=== PATIENT | female | born 2000 | race Hispanic/Latino ===

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

== ENCOUNTER 2022-03-17 21:11 | Emergency (ER) | payer OTHER ==
[~2022-03-17] VITALS: Ht 154.9 cm; Wt 100.7 kg
[2022-03-17 21:40] LABS: BASOPHILS % (AUTO) 0.6 % (0.0-5.0); EOSINOPHILS % (AUTO) 1.5 % (0.0-8.0); HEMATOCRIT 37.5 % (36-48); LYMPHOCYTES % (AUTO) 28.4 % (21.0-51.0); MEAN CORPUSCULAR HEMOGLOBIN 24.4 pg (27.0-33.0); MEAN CORPUSCULAR HGB CONC 32.5 g/dL (32.0-36.0); MEAN CORPUSCULAR VOLUME 74.9 fL (80-100); MONOCYTES % (AUTO) 6.7 % (3.0-13.0); NEUTROPHILS % (AUTO) 62.4 % (40.0-77.0); PLATELET COUNT (AUTO) 289 K/uL (130-400); RED BLOOD CELL COUNT(AUTO) 5.01 MIL/uL (4.00-5.50); RED CELL DISTRIBUTION WIDTH 14.6 % (11.0-15.5); WHITE BLOOD COUNT (AUTO) 10.8 K/uL (4.8-10.8)
[2022-03-17 21:53] LABS: CREATININE 0.7 mg/dL (0.5-1.5); POTASSIUM 3.5 mmol/L (3.5-5.1)
[2022-03-17 21:59] LABS: TOTAL PROTEIN, SERUM 8.6 g/dL (6.0-8.3)
[2022-03-17 21:59] LABS: APPEARANCE,URINE CLEAR (CLEAR); BILIRUBIN,URINE NEGATIVE (NEGATIVE); COLOR,URINE YELLOW (YELLOW); GLUCOSE, URINE (UA) NEGATIVE (NEGATIVE); KETONES,URINE NEGATIVE (NEGATIVE); LEUKOCYTE ESTERASE ,URINE NEGATIVE (NEGATIVE); NITRATE,URINE NEGATIVE (NEGATIVE); OCCULT BLOOD,URINE NEGATIVE (NEGATIVE); PROTEIN,URINE NEGATIVE (NEGATIVE)
[2022-03-17 22:03] LABS: HCG,QUALITATIVE URINE NEGATIVE (NEGATIVE)
[2022-03-17 22:09] LABS: AMPHET/METH SCREEN,URINE NEGATIVE (NEGATIVE); BARBITURATE SCREEN, URINE NEGATIVE (NEGATIVE); BENZODIAZEPINES SCREEN,URINE NEGATIVE (NEGATIVE); CANNABINOID SCREEN,URINE NEGATIVE (NEGATIVE); COCAINE SCREEN,URINE NEGATIVE (NEGATIVE); OPIATE SCREEN,URINE NEGATIVE (NEGATIVE); PHENCYCLIDINE SCREEN,URINE NEGATIVE (NEGATIVE)
[2022-03-17 22:31] VITALS: BP 134/72
[2022-03-17] MEDS ORDERED: TIZA4CAP8 PO (22:44)
== END 2022-03-17 22:51 | disposition home or self-care (01) ==
LOC: EDH 21:11
DX: R07.89 Other chest pain (principal); Z20.822 Contact with and (suspected) exposure to COVID-19
CPT/HCPCS: 99285; 71045; 87635; 84484; 80053; 80305; 85025; 87804 ×2; 81025; 36415; 93005; 81003; C9803

== ENCOUNTER 2023-06-23 16:27 | Emergency (ER) | payer OTHER ==
[~2023-06-23] VITALS: Ht 157.5 cm; Wt 101.2 kg
[~2023-06-23 16:27] MED LIST: TIZA4CAP8 PO
[2023-06-23 16:57] LABS: SARS-CoV-2, RNA, NAAT POSITIVE SARS CoV-2 (NEGATIVE)
[2023-06-23 17:02] LABS: RAPID GROUP A STREP negative (NEGATIVE)
[2023-06-23 17:06] LABS: INFLUENZA TYPE A Negative For Type A (NEGATIVE); INFLUENZA TYPE B Negative For Type B (NEGATIVE)
[2023-06-23] MEDS ORDERED: NIRM1TAB5 PO (19:04)
[2023-06-23 19:17] VITALS: BP 134/72; PULSE 98; RESP 16; O2SAT 98
== END 2023-06-23 19:19 | disposition home or self-care (01) ==
LOC: EDH 16:27
DX: U07.1 COVID-19 (principal)
CPT/HCPCS: 99283; 87635; 87880; 87804 ×2; C9803

== ENCOUNTER 2025-01-03 11:00 | Emergency (ER) | payer BC ==
[~2025-01-03] VITALS: Ht 154.9 cm; Wt 102.1 kg
[~2025-01-03 11:00] MED LIST changes: +NIRM1TAB5 PO
[2025-01-03 11:25] LABS: RAPID GROUP A STREP negative (NEGATIVE)
[2025-01-03 11:35] LABS: INFLUENZA TYPE A Negative For Type A (NEGATIVE); INFLUENZA TYPE B Negative For Type B (NEGATIVE)
[2025-01-03 11:36] LABS: COVID19 (SARS ANTIGEN RAPID) PRESUMPTIVE NEGATIVE (NEGATIVE)
[2025-01-03] MEDS: ondanSETRON ODT 4MG TAB SL ONE (12:18)
[2025-01-03 12:41] LABS: BASOPHILS # (AUTO) 0.04 K/uL (0.00-0.20); BASOPHILS % (AUTO) 0.5 % (0.0-5.0); EOSINOPHILS # (AUTO) 0.17 K/uL (0.00-0.70); EOSINOPHILS % (AUTO) 2.1 % (0.0-8.0); HEMATOCRIT 36.3 % (36-48); IMMATURE GRANULOCYTE ABSOLUTE 0.03 K/uL (0-1); LYMPHOCYTES # (AUTO) 2.9 K/uL (1.0-4.8); LYMPHOCYTES % (AUTO) 36.4 % (21.0-51.0); MEAN CORPUSCULAR HEMOGLOBIN 24.3 pg (27.0-33.0); MEAN CORPUSCULAR HGB CONC 31.7 g/dL (32.0-36.0); MEAN CORPUSCULAR VOLUME 76.7 fL (79-99); MONOCYTES # (AUTO) 0.5 K/uL (0.1-1.0); MONOCYTES % (AUTO) 6.6 % (3.0-13.0); NEUTROPHILS # (AUTO) 4.4 K/uL (1.8-7.7); PLATELET COUNT (AUTO) 274 K/uL (130-400); RED BLOOD CELL COUNT(AUTO) 4.73 MIL/uL (4.00-5.50); RED CELL DISTRIBUTION WIDTH 14.5 % (11.0-15.5); WHITE BLOOD COUNT (AUTO) 8.1 K/uL (4.8-10.8)
[2025-01-03 12:54] LABS: ALBUMIN 3.9 g/dL (3.5-5.0); BILIRUBIN,DIRECT 0.1 mg/dL (0.0-0.3); BILIRUBIN,TOTAL 0.2 mg/dL (0.2-1.0); CREATININE 0.6 mg/dL (0.5-1.0); POTASSIUM 4.3 mmol/L (3.5-5.1); TOTAL PROTEIN, SERUM 8.2 g/dL (6.0-8.3)
[2025-01-03] MEDS ORDERED: NAPR-1196 PO (13:10)
--- NOTE | 2025-01-03 13:10 | ERN ---
ED Note History of Present Illness Stated Complaint: RUNNY NOSE, SORE THROAT, HEADACHE Chief Complaint: Flu Symptoms Time Seen by MD: 11:03 Dictation: 24-year-old female presents to the ED for evaluation of flu-like symptoms onset two days ago. Patient is complaining of rhinorrhea, sore throat, nausea and intermittent abdominal pain, but denies any vomiting or diarrhea at this time. As per patient she has been experiencing abdominal pain on and off for the past week but denies any abdominal pain at this time. Allergies: Coded Allergies: No Known Drug Allergies (Unverified Allergy, Unknown, 08/29/19) Home Meds Active Scripts Naproxen (Naproxen) 250 Mg Tablet, 250 MG PO BID for 5 Days, #10 TAB Prov:ZINA GOMEZ MD 01/03/25 Nirmatrelvir/Ritonavir (Paxlovid 150-100 mg Pack (Eua)) 150 Mg-100 Mg Tablet, 1 EACH PO BID for 5 Days, #30 TAB Take 300mg of Nirmatrelvir and 100mg or Ritonavir in the morning and also at night for 5 days. Prov:BRIAN TALBERT TENONER OPERATOR 06/23/23 Tizanidine HCl (Tizanidine HCl) 4 Mg Capsule, 4 MG PO TIDP PRN for MUSCLE SPASMS, #12 CAP 0 Refills Prov:OG FISHMAN MD 03/17/22 Past Medical History Past Medical History: No Pertinent History Surgical History: None Social History: Lives with family, Other : 0 Aborts: 0 Review of System Dictation Constitutional: Negative for fever,chills, and weight loss Eyes: Negative for injury, pain,redness, and discharge ENT: Positive for rhinorrhea, sore throat Negative for injury,pain or swelling Cardiovascular: Negative for chest pain, palpitations, and edema Respiratory: Negative for shortness of breath, cough, and wheezing, Abdomen/GI: Positive for abdominal pain, nausea negative for vomiting, diarrhea, and constipation Back: Negative for injury and pain : Negative for injury, bleeding and discharge MS/Extremity: Negative for injury and deformity Skin: Negative for rash, and discoloration Neuro: Negative for headache, weakness, numbness, tingling, and seizure Psych: Negative for suicide ideation, homicidal ideation, and hallucinations Initial Vital Sign VS Vital Signs Date Time Temp Pulse Resp B/P (MAP) Pulse Ox O2 Delivery O2 Flow Rate FiO2 01/03/25 11:04 97.9 80 14 127/84 100 Room Air 0 01/03/25 13:17 21 Physical Exam Dictation General: awake, alert, NAD Head/Face: Normocephalic, atraumatic Eyes: PERRL, EOMI, vision at baseline ENT: oral cavity clear, TMs clear, no signs of infection Neck: Trachea midline, supple, no nuchal rigidity Cardiovascular: RRR, normal S1/S2, No MRGs, no JVD Respiratory: CTAB, no respiratory distress, No rales or wheezes Abdomen: Soft, non-tender, non-distended, normal bowel sounds, no guarding or rebound. Skin: Warm, dry, normal turgor, no rash MS/Extremity: Pulses equal, no cyanosis, neurovascular intact, FROM Neuro: COAx4, GCS 15, strength 5/5, CN 2-12 intact, normal cerebellar exam, normal gait, Psych: Normal behavior, mood, and affect normal Results (Laboratory/Radiology) Laboratory/Radiology Laboratory Tests Test 01/03/25 11:08 01/03/25 12:36 Influenza Type A Antigen Negative For Type A Influenza Type B Antigen Negative For Type B SARS-CoV-2 Antigen (Rapid) PRESUMPTIVE NEGATIVE Group A Streptococcus Rapid negative (NEGATIVE) White Blood Count 8.1 K/uL (4.8-10.8) Red Blood Count 4.73 MIL/uL (4.00-5.50) Hemoglobin 11.5 g/dL (12.0-16.0) L Hematocrit 36.3 % (36-48) Mean Corpuscular Volume 76.7 fL (79-99) L Mean Corpuscular Hemoglobin 24.3 pg (27.0-33.0) L Mean Corpuscular Hemoglobin Concent 31.7 g/dL (32.0-36.0) L Red Cell Distribution Width 14.5 % (11.0-15.5) Platelet Count 274 K/uL (130-400) Mean Platelet Volume 8.7 fL (7.5-10.5) Immature Granulocyte % (Auto) 0.4 % (0-1) Neutrophils (%) (Auto) 54.0 % (40.0-77.0) Lymphocytes (%) (Auto) 36.4 % (21.0-51.0) Monocytes (%) (Auto) 6.6 % (3.0-13.0) Eosinophils (%) (Auto) 2.1 % (0.0-8.0) Basophils (%) (Auto) 0.5 % (0.0-5.0) Neutrophils # (Auto) 4.4 K/uL (1.8-7.7) Lymphocytes # (Auto) 2.9 K/uL (1.0-4.8) Monocytes # (Auto) 0.5 K/uL (0.1-1.0) Eosinophils # (Auto) 0.17 K/uL (0.00-0.70) Basophils # (Auto) 0.04 K/uL (0.00-0.20) Absolute Immature Granulocyte (auto 0.03 K/uL (0-1) Nucleated Red Blood Cells 0.0 % (0.0-0.19) Red Blood Cell Morphology See comments Sodium Level 138 mmol/L (136-145) Potassium Level 4.3 mmol/L (3.5-5.1) Chloride Level 102 mmol/L (101-111) Carbon Dioxide Level 28 mmol/L (21-32) Blood Urea Nitrogen 15 mg/dL (7-18) Creatinine 0.6 mg/dL (0.5-1.0) Glomerular Filtration Rate Calc 128 mL/min (>90) Random Glucose 92 mg/dL (70-105) Total Calcium 8.8 mg/dL (8.5-10.1) Total Bilirubin 0.2 mg/dL (0.2-1.0) Direct Bilirubin 0.1 mg/dL (0.0-0.3) Aspartate Amino Transf (AST/SGOT) 19 U/L (10-37) Alanine Aminotransferase (ALT/SGPT) 51 U/L (12-78) Alkaline Phosphatase 75 U/L (50-136) Total Protein 8.2 g/dL (6.0-8.3) Albumin 3.9 g/dL (3.5-5.0) Serum Test, Qualitative NEGATIVE (NEGATIVE) Labs Reviewed?: Yes ED Course ED Course Orders Procedure Category Date Status Time Influenza Type A & B, LAB 01/03/25 Complete Rapid 11:03 Covid19 (Sars Antigen LAB 01/03/25 Complete Rapid) 11:03 Rapid (Group A Strep) LAB 01/03/25 Complete 11:03 Basic Metabolic Panel LAB 01/03/25 Complete 11:58 Cbc With Differential LAB 01/03/25 Complete 11:58 Hepatic Function Panel LAB 01/03/25 Complete 11:58 Testing, LAB 01/03/25 Complete Serum Hcg 11:58 Ondansetron Odt 4mg PHA 01/03/25 Complete Tab (Zofran 4mg Odt) 12:00 Current Medications Medications (Trade) Dose Ordered Sig/Jacy Route PRN Reason Start Time Stop Time Status Last Admin Dose Admin Ondansetron HCl (zoFRAN 4MG ODT) 4 mg ONCE ONCE SL 01/03/25 12:00 01/03/25 12:02 DC 01/03/25 12:18 Vital Signs Date Time Temp Pulse Resp B/P (MAP) Pulse Ox O2 Delivery O2 Flow Rate FiO2 01/03/25 13:17 97.5 68 19 121/73 96 Room Air* 0 21 01/03/25 11:04 97.9 80 14 127/84 100 Room Air 0 Medical Decision Making MDM MDM: Differential diagnosis: Viral syndrome, influenza, URI Risk of complication and/or morbidity or mortality of patient management: None Medications-Per medication reconciliation Need for hospitalization: Patient does not meet criteria for hospitalization. Need for emergency major/minor surgery: No There are no social concerns with this patient. Prescription drug management Prescriptions will include symptomatic care I independently interpreted the test that were performed, results were reviewed by me and considered findings on radiology if ordered. Medical management and examination interpretation discussions were had by me with other qualified healthcare professionals as indicated for the patient's care. DX & DISP Disposition: Discharge Departure Impression: Primary Impression: Acute URI Condition: Stable Scripts Naproxen (Naproxen) 250 Mg Tablet 250 MG PO BID for 5 Days, #10 TAB Prov: ZINA GOMEZ MD 01/03/25 Referrals: SELF,REFERRAL (PCP) ZINA GOMEZ MD January 03, 2025 13:10
[2025-01-03 13:17] VITALS: BP 121/73; PULSE 68; RESP 19; TEMP 97.6; O2SAT 96
== END 2025-01-03 13:23 | disposition home or self-care (01) ==
LOC: EDH 11:00
DX: J06.9 Acute upper respiratory infection, unspecified (principal); Z20.822 Contact with and (suspected) exposure to COVID-19
CPT/HCPCS: 36415; 80048; 80076; 84703; 85025; 87426; 87804; 87880; 99283

== ENCOUNTER 2025-03-18 21:49 | Emergency (ER) | payer BC ==
[~2025-03-18] VITALS: Ht 157.5 cm; Wt 104.3 kg
[~2025-03-18 21:49] MED LIST changes: +NAPR-1196 PO
--- NOTE | 2025-03-18 21:56 | NUR ---
UA CUP PROVIDED
--- NOTE | 2025-03-18 21:59 | ERN ---
ED Note History of Present Illness Stated Complaint: SHAKING, LEFT FLANK PAIN Chief Complaint: Multiple Complaints Time Seen by MD: 21:55 Dictation: This is a 24-year-old female who presented to the emergency room stating that she started having tremulousness chest pressure and discomfort in her throat that started about 10 or 15 minutes prior to the presentation. Apparently patient and spouse were in the car when she began feeling uncomfortable. She also reports some generalized body weakness but no tongue swelling no lip swelling. No rash anywhere on the body. She does drink a lot of regular sodas and she stated that prior to all the symptoms she ate water burger food. No syncope blurred vision diplopia motor weakness or seizure activity. No fever chills or rigors. 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 Prov:BRIAN TALBERT ICE CREAM FREEZER ASSISTANT 06/23/23 Tizanidine HCl (Tizanidine HCl) 4 Mg Capsule, 4 MG PO TIDP PRN for MUSCLE SPASMS, #12 CAP 0 Refills Prov:OG FISHMAN MD 03/17/22 Past Medical History Past Medical History: No Pertinent History Surgical History: None Family History: Negative Social History: Negative, Lives with family, Other : 0 Aborts: 0 RN Note Reviewed/Agreed w/PFSH: Yes Review of System Dictation Constitutional: Negative for fever,chills, and weight loss positive for shakiness and tremulousness Eyes: Negative for injury, pain,redness, and discharge ENT: Negative for injury,pain or swelling positive for discomfort in the throat Cardiovascular: Positive for chest pressure, palpitations, and denies edema Respiratory: Negative for shortness of breath, cough, and wheezing, Abdomen/GI: Negative for abdominal pain, nausea, vomiting, diarrhea, and constipation Back: Negative for injury and pain : Negative for injury, bleeding and discharge MS/Extremity: Negative for injury and deformity Skin: Negative for rash, and discoloration Neuro: Negative for headache, weakness, numbness, tingling, and seizure Psych: Negative for suicide ideation, homicidal ideation, and hallucinations Initial Vital Sign VS Vital Signs Date Time Temp Pulse Resp B/P (MAP) Pulse Ox O2 Delivery O2 Flow Rate FiO2 03/18/25 21:50 98.2 106 20 142/86 100 Room Air 03/18/25 23:04 0 21 Physical Exam Dictation General: awake, alert, NAD morbidly obese Head/Face: Normocephalic, atraumatic Eyes: PERRL, EOMI, vision at baseline ENT: oral cavity clear, TMs clear, no signs of infection no stridor, no shortness of breath Neck: Trachea midline, supple, no nuchal rigidity Cardiovascular: RRR, normal S1/S2, No MRGs, no JVD Respiratory: CTAB, no respiratory distress, No rales or wheezes Abdomen: Soft, non-tender, non-distended, normal bowel sounds, no guarding or rebound. Skin: Warm, dry, normal turgor, no rash MS/Extremity: Pulses equal, no cyanosis, neurovascular intact, FROM Neuro: COAx4, GCS 15, strength 5/5, CN 2-12 intact, normal cerebellar exam, normal gait, Psych: Normal behavior, mood, and affect normal Extremities-trace edema without any palpable cords, Homans sign is negative Results (Laboratory/Radiology) Laboratory/Radiology Laboratory Tests Test 03/18/25 21:44 03/18/25 22:04 Urine Color YELLOW (YELLOW) Urine Appearance CLOUDY (CLEAR) H Urine pH 5.5 (5.0-8.0) Urine Specific [place] 1.035 (1.001-1.031) Urine Protein 10 mg/dL (NEGATIVE) H Urine Glucose (UA) NEGATIVE mg/dL (NEGATIVE) Urine Ketones NEGATIVE mg/dL (NEGATIVE) Urine Occult Blood NEGATIVE (NEGATIVE) Urine Nitrate NEGATIVE (NEGATIVE) Urine Bilirubin NEGATIVE mg/dL (NEGATIVE) Urine Urobilinogen 0.2 mg/dL (0.2-1.0) Urine Leukocyte Esterase NEGATIVE [place]/uL Urine RBC None /HPF (0-1) Urine WBC 2-5 /HPF (0-1) H Urine Squamous Epithelial Cells MANY /HPF (0-2) Urine Bacteria None /HPF (None Seen) White Blood Count 11.6 K/uL (4.8-10.8) H Red Blood Count 4.98 MIL/uL (4.00-5.50) Hemoglobin 11.9 g/dL (12.0-16.0) L Hematocrit 36.5 % (36-48) Mean Corpuscular Volume 73.3 fL (79-99) L Mean Corpuscular Hemoglobin 23.9 pg (27.0-33.0) L Mean Corpuscular Hemoglobin Concent 32.6 g/dL (32.0-36.0) Red Cell Distribution Width 15.2 % (11.0-15.5) Platelet Count 274 K/uL (130-400) Mean Platelet Volume 8.6 fL (7.5-10.5) Immature Granulocyte % (Auto) 0.3 % (0-1) Neutrophils (%) (Auto) 65.1 % (40.0-77.0) Lymphocytes (%) (Auto) 28.8 % (21.0-51.0) Monocytes (%) (Auto) 4.4 % (3.0-13.0) Eosinophils (%) (Auto) 1.1 % (0.0-8.0) Basophils (%) (Auto) 0.3 % (0.0-5.0) Neutrophils # (Auto) 7.6 K/uL (1.8-7.7) Lymphocytes # (Auto) 3.3 K/uL (1.0-4.8) Monocytes # (Auto) 0.5 K/uL (0.1-1.0) Eosinophils # (Auto) 0.13 K/uL (0.00-0.70) Basophils # (Auto) 0.04 K/uL (0.00-0.20) Absolute Immature Granulocyte (auto 0.04 K/uL (0-1) Nucleated Red Blood Cells 0.0 % (0.0-0.19) Red Blood Cell Morphology See comments Sodium Level 139 mmol/L (136-145) Potassium Level 3.6 mmol/L (3.5-5.1) Chloride Level 102 mmol/L (101-111) Carbon Dioxide Level 27 mmol/L (21-32) Blood Urea Nitrogen 17 mg/dL (7-18) Creatinine 0.6 mg/dL (0.5-1.0) Glomerular Filtration Rate Calc 128 mL/min (>90) Random Glucose 132 mg/dL (70-105) H Lactic Acid Level 1.8 mmol/L (0.8-2.5) Total Calcium 9.1 mg/dL (8.5-10.1) Human Chorionic Gonadotropin, Quant 0 mIU/mL (0-5) Labs Reviewed?: Yes ED Course ED Course Orders Procedure Category Date Status Time Urinalysis Profile LAB 03/18/25 Complete 21:51 0.9%Nacl 1000ml (Ns PHA 03/18/25 Complete 1000ml) 22:00 Cbc With Differential LAB 03/18/25 Complete 21:58 Basic Metabolic Panel LAB 03/18/25 Complete 21:58 Hcg,Quantitative LAB 03/18/25 Complete 21:58 Lactic Acid LAB 03/18/25 Complete 21:58 Methylprednisolone PHA 03/18/25 Complete Succ 40mg (Solu-Medro 23:00 Famotidine 20mg Vial PHA 03/18/25 Complete (Pepcid 20mg Vial) 23:00 Diphenhydramine Hcl PHA 03/18/25 Complete (Benadryl Inj) 23:00 Current Medications Medications (Trade) Dose Ordered Sig/Jacy Route PRN Reason Start Time Stop Time Status Last Admin Dose Admin Diphenhydramine HCl (BENAdryl INJ) 25 mg ONCE ONCE IV 03/18/25 23:00 03/18/25 23:01 DC 03/18/25 22:59 Famotidine (Pepcid 20mg Vial) 20 mg ONCE ONCE IV 03/18/25 23:00 03/18/25 23:01 DC 03/18/25 22:58 Methylprednisolone Sodium Succinate (Solu-medROL 40MG) 40 mg ONCE ONCE IVP 03/18/25 23:00 03/18/25 23:01 DC 03/18/25 22:58 Sodium Chloride 1,000 ml @ 0 mls/hr ONCE ONCE IV 03/18/25 22:00 03/18/25 22:01 DC 03/18/25 22:15 Vital Signs Date Time Temp Pulse Resp B/P (MAP) Pulse Ox O2 Delivery O2 Flow Rate FiO2 03/18/25 23:04 91 18 131/84 100 Room Air* 0 21 03/18/25 21:50 98.2 106 20 142/86 100 Room Air We will perform diagnostic labs, advanced imaging and administer medications according to the patient's complaint. Once the results are available, will review and personally interpreted the labs to rule out any acute life- threatening emergency the trach require immediate intervention and treatment. I will then re-evaluate the patient after treatment and diagnostic exams have return to determine whether the patient requires any further testing, can safely be discharged home or need further admission to hospital for additional treatment and evaluation. 10:23 p.m. Labs reviewed CBC showed a white count of 11.6, BNP 7 is with a normal limits urinalysis is unremarkable test is pending 11:50 p.m. test is negative troponins are negative Gave her a trial of steroid Benadryl and Pepcid. She feels fine and improved from the time she came in .we will discharge her to follow up with her primary care physician I counseled her on weight loss diet and exercise and avoiding caffeinated beverages and she verbalized full understanding. Her spouse was at bedside HEART Score Response (Comments) Value History: Low suspicion (0) 0 EKG: Normal 0 Age: < 45yrs (0) 0 Risk Factors: No known risk factors (0) 0 Initial Troponin: Normal limit (0) 0 HEART Score Risk: Low Risk for MACE (1-3) Total 0 Medical Decision Making MDM Differential diagnosis: Anxiety attack, allergy to any food dye, excessive caffeinated beverages ingestion, , low-grade infection Rationale: Tests considered and ordered secondary to shared decision making include: Previous outside records reviewed: Old ER visits. Risk of complication and/or morbidity or mortality of patient management: None Medications-Per medication reconciliation Need for hospitalization: Patient does not meet criteria for hospitalization. Need for emergency major/minor surgery: No There are no social concerns with this patient. Prescription drug management Prescriptions will include symptomatic care Patient's prior external medical records from other ER visits were reviewed by me as indicated. Prior testing and results from previous visits were reviewed. Prior tests were taken into account with medical decision making and resource utilization, independent historian/historians were used to obtain complete medical history. I independently interpreted the test that were performed, results were reviewed by me and considered findings on radiology if ordered. Medical management and examination interpretation discussions were had by me with other qualified healthcare professionals as indicated for the patient's care. Problem List Problem List: (1) Excessive consumption of soda pop (2) Allergic reaction (3) Anxiety (4) Acute chest wall pain DX & DISP Disposition: Discharge Departure Impression: Primary Impression: Acute chest wall pain Additional Impressions: Allergic reaction, Anxiety, Excessive consumption of soda pop Condition: Stable Additional Instructions: Patient and the caregiver have been informed of all the diagnostic tests and the imaging conducted during the today's visit to the emergency room and has verbalized understanding of the results I have personally reviewed and interpreted all diagnostic exams performed here in the ER today as well as the vital signs documented by the nursing staff. The patient is now being discharged to home and should follow up with the primary care physician or the specialist as directed by the ER staff. Follow-up with primary care provider in 1 to 2 days. Take medications as directed here in the emergency room. Okay to continue home medications unless otherwise discussed during your visit in the emergency room today. Return to your nearest emergency room if symptoms worsen or if there is no improvement. Call 911 if you need immediate assistance. Take Tylenol or Motrin [id number] as needed and if no contraindications are present. Increase oral hydration. A wound culture or urine culture was ordered here in the emergency room department please follow-up with primary care provider and advise them to get repeat ports from our facility. If you had any Mark wrap/splints that were applied here, please do not remove them until you see your primary care or specialty. Referrals: SELF,REFERRAL (PCP) JACQUELYN PRETTY MD Mar 18, 2025 21:59
[2025-03-18 22:10] LABS: APPEARANCE,URINE CLOUDY (CLEAR); GLUCOSE, URINE (UA) NEGATIVE (NEGATIVE); LEUKOCYTE ESTERASE ,URINE NEGATIVE Leu/uL (NEGATIVE); NITRATE,URINE NEGATIVE (NEGATIVE); OCCULT BLOOD,URINE NEGATIVE (NEGATIVE)
[2025-03-18 22:13] LABS: IMMATURE GRANULOCYTE ABSOLUTE 0.04 K/uL (0-1); NUCLEATED RED BLOOD CELLS 0.0 % (0.0-0.19); PLATELET COUNT (AUTO) 274 K/uL (130-400); RED BLOOD CELL COUNT(AUTO) 4.98 MIL/uL (4.00-5.50); RED CELL DISTRIBUTION WIDTH 15.2 % (11.0-15.5); WHITE BLOOD COUNT (AUTO) 11.6 K/uL (4.8-10.8)
[2025-03-18 22:14] LABS: ADD UA MICROSCOPIC YES
[2025-03-18] MEDS: 0.9%NACL 1000ML 1,000 ML IV ONE (22:15)
[2025-03-18 22:16] LABS: SQUAMOUS EPITHELIAL CELL,UR MANY /HPF (0-2)
[2025-03-18 22:22] LABS: CREATININE 0.6 mg/dL (0.5-1.0); GLOMERULAR FILTR. RATE CALC 128.0 mL/min (>90); GLUCOSE,RANDOM 132.0 mg/dL (70-105); SODIUM SERUM 139.0 mmol/L (136-145); UREA NITROGEN, BLOOD 17.0 mg/dL (7-18)
[2025-03-18 22:33] LABS: HCG,QUANTITATIVE 0.0 mIU/mL (0-5)
[2025-03-18] MEDS: FAMOTIDINE 20MG VIAL IV ONE (22:58)
[2025-03-18] MEDS: Solu-medROL 40MG VIAL IVP ONE (22:58)
[2025-03-18 23:46] VITALS: BP 118/76; PULSE 81; RESP 18; TEMP 98.2; O2SAT 100
== END 2025-03-19 | disposition home or self-care (01) ==
LOC: EDH 21:49
DX: R07.89 Other chest pain (principal); T78.40XA Allergy, unspecified, initial encounter; F41.9 Anxiety disorder, unspecified; R10.2 Pelvic and perineal pain; F15.90 Other stimulant use, unspecified, uncomplicated; X58.XXXA Exposure to other specified factors, initial encounter
CPT/HCPCS: 99284; 96374; 96375; 80048; 84702; 85025; 83605; 81001; 36415; J2919; J1200; J3490; J7030

== ENCOUNTER 2025-07-23 11:15 | Emergency (ER) | payer BC ==
[~2025-07-23] VITALS: Ht 154.9 cm; Wt 97.5 kg
[2025-07-23 11:37] LABS: APPEARANCE,URINE CLEAR (CLEAR); GLUCOSE, URINE (UA) NEGATIVE (NEGATIVE); LEUKOCYTE ESTERASE ,URINE NEGATIVE Leu/uL (NEGATIVE); NITRATE,URINE NEGATIVE (NEGATIVE); OCCULT BLOOD,URINE NEGATIVE (NEGATIVE)
[2025-07-23 11:37] LABS: IMMATURE GRANULOCYTE ABSOLUTE 0.03 K/uL (0-1); NUCLEATED RED BLOOD CELLS 0.0 % (0.0-0.19); PLATELET COUNT (AUTO) 290 K/uL (130-400); RED BLOOD CELL COUNT(AUTO) 5.07 MIL/uL (4.00-5.50); RED CELL DISTRIBUTION WIDTH 14.2 % (11.0-15.5); WHITE BLOOD COUNT (AUTO) 9.8 K/uL (4.8-10.8)
[2025-07-23 11:38] LABS: ADD UA MICROSCOPIC NO
[2025-07-23 11:39] LABS: HCG,QUALITATIVE URINE NEGATIVE (NEGATIVE)
[2025-07-23 11:47] LABS: CREATININE 0.7 mg/dL (0.5-1.0); GLOMERULAR FILTR. RATE CALC 123.0 mL/min (>90); GLUCOSE,RANDOM 87.0 mg/dL (70-105); SODIUM SERUM 135.0 mmol/L (136-145); UREA NITROGEN, BLOOD 12.0 mg/dL (7-18)
[2025-07-23 11:52] LABS: ASPARTATE AMINOTRANSFERASE 15.0 U/L (10-37); TOTAL PROTEIN, SERUM 8.6 g/dL (6.0-8.3)
[2025-07-23 12:26] VITALS: BP 113/69; PULSE 81; RESP 16; TEMP 97; O2SAT 100
[2025-07-23] MEDS ORDERED: CYCL10TA16 PO (12:36)
--- NOTE | 2025-07-23 12:38 | ERN ---
ED Note History of Present Illness Stated Complaint: RT FLANK PAIN Chief Complaint: Flank Pain Time Seen by MD: 11:20 Dictation: 25-year-old female presenting to the emergency department with right low back pain which was worsens work the past few days patient reports she has more painful to touch and movement and improves with rest. Patient denies any nausea vomiting or pain with urination Allergies: Coded Allergies: No Known Drug Allergies (Unverified Allergy, Unknown, 08/29/19) Home Meds Active Scripts Naproxen (Naproxen) 250 Mg Tablet, 250 MG PO BID for 5 Days, #10 TAB Prov:ZINA GOMEZ MD 01/03/25 Nirmatrelvir/Ritonavir (Paxlovid 150-100 mg Pack (Eua)) 150 Mg-100 Mg Tablet, 1 EACH PO BID for 5 Days, #30 TAB Take 300mg of Nirmatrelvir and 100mg or Ritonavir in the morning and also at night for 5 days. Prov:BRIAN TALBERT ONLINE PRODUCER 06/23/23 Tizanidine HCl (Tizanidine HCl) 4 Mg Capsule, 4 MG PO TIDP PRN for MUSCLE SPASMS, #12 CAP 0 Refills Prov:OG FISHMAN MD 03/17/22 Past Medical History Past Medical History: No Pertinent History Surgical History: None Family History: Negative Social History: Negative, Lives with family, Other LMP: Jun 22, 2025 : 0 Aborts: 0 Review of System Dictation Constitutional: Negative for fever,chills, and weight loss Eyes: Negative for injury, pain,redness, and discharge ENT: Negative for injury,pain or swelling Cardiovascular: Negative for chest pain, palpitations, and edema Respiratory: Negative for shortness of breath, cough, and wheezing, Abdomen/GI: Negative for abdominal pain, nausea, vomiting, diarrhea, and constipation Back: Per HPI : Negative for injury, bleeding and discharge MS/Extremity: Negative for injury and deformity Skin: Negative for rash, and discoloration Neuro: Negative for headache, weakness, numbness, tingling, and seizure Psych: Negative for suicide ideation, homicidal ideation, and hallucinations Initial Vital Sign VS Vital Signs Date Time Temp Pulse Resp B/P (MAP) Pulse Ox O2 Delivery O2 Flow Rate FiO2 07/23/25 11:17 98.8 80 18 111/66 100 Room Air 0 07/23/25 12:26 21 Physical Exam Dictation General: awake, alert, NAD Head/Face: Normocephalic, atraumatic Eyes: PERRL, EOMI, vision at baseline ENT: oral cavity clear, TMs clear, no signs of infection Neck: Trachea midline, supple, no nuchal rigidity Cardiovascular: RRR, normal S1/S2, No MRGs, no JVD Respiratory: CTAB, no respiratory distress, No rales or wheezes Abdomen: Soft, non-tender, non-distended, normal bowel sounds, no guarding or rebound. Skin: Warm, dry, normal turgor, no rash MS/Extremity: Pulses equal, no cyanosis, neurovascular intact, FROM Neuro: COAx4, GCS 15, strength 5/5, CN 2-12 intact, normal cerebellar exam, norm al gait, Psych: Normal behavior, mood, and affect normal Results (Laboratory/Radiology) Laboratory/Radiology Laboratory Tests Test 07/23/25 11:20 07/23/25 11:32 Urine Color LIGHT-YELLOW (YELLOW) Urine Appearance CLEAR (CLEAR) Urine pH 5.5 (5.0-8.0) Urine Specific [place] 1.020 (1.001-1.031) Urine Protein NEGATIVE mg/dL (NEGATIVE) Urine Glucose (UA) NEGATIVE mg/dL (NEGATIVE) Urine Ketones NEGATIVE mg/dL (NEGATIVE) Urine Occult Blood NEGATIVE (NEGATIVE) Urine Nitrate NEGATIVE (NEGATIVE) Urine Bilirubin NEGATIVE mg/dL (NEGATIVE) Urine Urobilinogen 0.2 mg/dL (0.2-1.0) Urine Leukocyte Esterase NEGATIVE Zoë/uL Urine HCG, Qualitative NEGATIVE (NEGATIVE) White Blood Count 9.8 K/uL (4.8-10.8) Red Blood Count 5.07 MIL/uL (4.00-5.50) Hemoglobin 12.2 g/dL (12.0-16.0) Hematocrit 38.4 % (36-48) Mean Corpuscular Volume 75.7 fL (79-99) L Mean Corpuscular Hemoglobin 24.1 pg (27.0-33.0) L Mean Corpuscular Hemoglobin Concent 31.8 g/dL (32.0-36.0) L Red Cell Distribution Width 14.2 % (11.0-15.5) Platelet Count 290 K/uL (130-400) Mean Platelet Volume 8.4 fL (7.5-10.5) Immature Granulocyte % (Auto) 0.3 % (0-1) Neutrophils (%) (Auto) 62.4 % (40.0-77.0) Lymphocytes (%) (Auto) 28.9 % (21.0-51.0) Monocytes (%) (Auto) 6.7 % (3.0-13.0) Eosinophils (%) (Auto) 1.3 % (0.0-8.0) Basophils (%) (Auto) 0.4 % (0.0-5.0) Neutrophils # (Auto) 6.1 K/uL (1.8-7.7) Lymphocytes # (Auto) 2.8 K/uL (1.0-4.8) Monocytes # (Auto) 0.7 K/uL (0.1-1.0) Eosinophils # (Auto) 0.13 K/uL (0.00-0.70) Basophils # (Auto) 0.04 K/uL (0.00-0.20) Absolute Immature Granulocyte (auto 0.03 K/uL (0-1) Nucleated Red Blood Cells 0.0 % (0.0-0.19) Red Blood Cell Morphology See comments Sodium Level 135 mmol/L (136-145) L Potassium Level 4.1 mmol/L (3.5-5.1) Chloride Level 98 mmol/L (101-111) L Carbon Dioxide Level 27 mmol/L (21-32) Blood Urea Nitrogen 12 mg/dL (7-18) Creatinine 0.7 mg/dL (0.5-1.0) Glomerular Filtration Rate Calc 123 mL/min (>90) Random Glucose 87 mg/dL (70-105) Total Calcium 9.2 mg/dL (8.5-10.1) Total Bilirubin 0.2 mg/dL (0.2-1.0) Direct Bilirubin 0.1 mg/dL (0.0-0.3) Aspartate Amino Transf (AST/SGOT) 15 U/L (10-37) Alanine Aminotransferase (ALT/SGPT) 36 U/L (12-78) Alkaline Phosphatase 79 U/L (50-136) Total Protein 8.6 g/dL (6.0-8.3) H Albumin 3.9 g/dL (3.5-5.0) Labs Reviewed?: Yes ED Course ED Course Orders Procedure Category Date Status Time Basic Metabolic Panel LAB 07/23/25 Complete 11: Cbc With Differential LAB 07/23/25 Complete 11:21 Hepatic Function Panel LAB 07/23/25 Complete 11:21 Urinalysis Profile LAB 07/23/25 Complete 11:21 ,Urine Test LAB 07/23/25 Complete 11:21 Cyclobenzaprine Hcl PHA 07/23/25 Complete (Cyclobenzaprine Hcl 12:19 Ketorolac PHA 07/23/25 Complete Tromethamine 15mg/Ml 12:30 Current Medications Medications (Trade) Dose Ordered Sig/Jacy Route PRN Reason Start Time Stop Time Status Last Admin Dose Admin Cyclobenzaprine HCl (Cyclobenzaprine HCl) 10 mg ONCE STAT PO 07/23/25 12:19 07/23/25 12:20 DC Ketorolac Tromethamine (toRADol) 15 mg ONCE ONCE IM 07/23/25 12:30 07/23/25 12:31 DC Vital Signs Date Time Temp Pulse Resp B/P (MAP) Pulse Ox O2 Delivery O2 Flow Rate FiO2 07/23/25 12:26 97.0 81 16 113/69 100 Room Air* 0 21 07/23/25 11:17 98.8 80 18 111/66 100 Room Air 0 Medical Decision Making MDM MDM: Differential diagnosis: Rationale: Tests considered and ordered secondary to shared decision making in clude: Previous outside records reviewed: Old ER visits. Risk of complication and/or morbidity or mortality of patient management: None Medications-Per medication reconciliation Need for hospitalization: Patient does not meet criteria for hospitalization. Need for emergency major/minor surgery: No There are no social concerns with this patient. Prescription drug management Prescriptions will include symptomatic care Patient's prior external medical records from other ER visits were reviewed by me as indicated. Prior testing and results from previous visits were reviewed. Prior tests were taken into account with medical decision making and resource utilization, independent historian/historians were used to obtain complete medical history. I independently interpreted the test that were performed, results were reviewed by me and considered findings on radiology if ordered. Medical management and examination interpretation discussions were had by me with other qualified healthcare professionals as indicated for the patient's care. 25-year-old flank pain, muscle sprain, stable exam negative urine and labs, no CT scan indicated stable for discharge. DX & DISP Disposition: Discharge Departure Impression: Primary Impression: Lumbar sprain Condition: Stable Scripts Cyclobenzaprine HCl (Flexeril) 10 Mg Tab 10 MG PO DAILY for muscle sstiffness, #5 TAB 0 Refills Prov: ZINA GOMEZ MD 07/23/25 Naproxen (Naproxen) 250 Mg Tablet 250 MG PO BID for 5 Days, #10 TAB Prov: ZINA GOMEZ MD 07/23/25 Referrals: SELF,REFERRAL (PCP) ZINA GOMEZ MD Jul 23, 2025 12:38
[2025-07-23] MEDS: CYCLOBENZAPRINE HCL 10 MG TABLET PO STA (12:45)
== END 2025-07-23 12:59 | disposition home or self-care (01) ==
LOC: EDH 11:15
DX: S33.5XXA Sprain of ligaments of lumbar spine, initial encounter (principal); Z79.899 Other long term (current) drug therapy; X58.XXXA Exposure to other specified factors, initial encounter; Y93.89 Activity, other specified; Y92.89 Other specified places as the place of occurrence of the external cause; Y99.8 Other external cause status
CPT/HCPCS: 99284; 80076; 80048; 85025; 81003; 81025; 36415; 96372; J1885